=== PATIENT | female | born 1960 | race Caucasian/White ===

== ENCOUNTER 2016-06-11 08:09 | Emergency (ER) | payer OTHER ==
[~2016-06-11] VITALS: Ht 167.6 cm; Wt 108.9 kg
--- NOTE | 2016-06-11 08:26 | ED GENERAL ADULT ---
History of Present Illness General Chief Complaint: Lower Extremity Injury Stated Complaint: LOWER L LEG PAIN X 3 DAYS Source: patient Exam Limitations: no limitations Reconcile Medications Apixaban (Eliquis) 5 MG TABLET 0 PO BID dvt 10mg PO BID x 7 days, then 5 mg PO BID Aspirin (Aspirin*) 81 MG TAB.CHEW 1 TAB PO DAILY HEART HEALTH (Reported) Lisinopril/Hydrochlorothiazide (Lisinopril-Hctz 10-12.5 MG Tab) 10 MG-12.5 MG TABLET 1 TAB PO DAILY HEART (Reported) Metoprolol Tartrate 25 MG TABLET 1 TAB PO BID HEART (Reported) Oxycodone HCl/Acetaminophen (Percocet 5-325 MG Tablet) 5 MG-325 MG TABLET 1 TAB PO Q6H PRN PAIN Triage Note: C/O LEFT CALF PAIN X 5 DAYS, LEFT LOWER LEG RASH X 1 DAYS. NOW STATES PAIN RADIATES TO LEFT HEEL AND TIBIA AREA. PAIN SOMEWHAT RELIEVED BY FLEXERIL AND 1/2 PERCOCET YESTERDAY. Triage Nurses Notes Reviewed? yes HPI: Patient is a 56-year-old female presents complaining of left calf pain onset approximately 5 days ago. Pain "feels like hell" when patient is walking, mildly improves with elevation and icy hot to the area. Patient also took a Flexeril, baby aspirin, half a Percocet with mild improvement. Patient reports she noticed a rash to the area 2 days. Patient denies known trauma, fevers, chills, chest pain, dyspnea. (TIP RODRIGUEZ) Vital Signs & Intake/Output Vital Signs & Intake/Output Vital Signs Date Time Temp Pulse Resp B/P Pulse O2 O2 Flow FiO2 Ox Delivery Rate 06/11 1002 98.9 71 20 141/75 97 Room Air 06/11 0815 97.7 68 18 140/76 99 Room Air Allergies Coded Allergies: aspirin (UNKNOWN 06/11/16) (MEÑO MEDINA,CASIMIRO Benites) Past History Travel History Traveled to [place] past 21 day No Medical History Any Pertinent Medical History? see below for history Cardiovascular: hypertension Surgical History Surgical History: non-contributory Psychosocial History What is your primary language Senegalese Tobacco Use: Never used ETOH Use: denies use Illicit Drug Use: denies illicit drug use Family History Hx Contributory? No (TIP RODRIGUEZ) Review of Systems Review of Systems Constitutional: Denies: chills, fever. Respiratory: Denies: short of breath. Cardiovascular: Denies: chest pain. GI: Denies: abdominal pain, nausea, vomiting. Musculoskeletal: Denies: back pain, neck pain. Skin: Reports: rash. Neurological/Psychological: Denies: headache, numbness. Hematologic/Endocrine: Denies: bruising, bleeding. Immunologic/Allergic: Denies: splenectomy. (GALEN CHAVEZ,TIP) Physical Exam Physical Exam General Appearance: well developed/nourished, alert, awake Head: atraumatic, normal appearance Eyes: Bilateral: normal appearance, PERRL, EOMI. Ears, Nose, Throat: normal pharynx, normal ENT inspection, hearing grossly normal Neck: normal inspection, supple, full range of motion Respiratory: normal breath sounds, chest non-tender, no respiratory distress, lungs clear Cardiovascular: regular rate/rhythm (no murmur) Peripheral Pulses: 2+ dorsalis pedis (R), 2+ dorsalis pedis (L) Gastrointestinal: soft, non-tender Back: normal inspection, normal range of motion, no vertebral tenderness Extremities: 1+ left lower extremity edema. Petechial rash to left medial inferior leg. Positive calf tenderness. Mild tenderness posterior fossa. Full range of motion of all 4 extremities. Neurologic/Psych: no motor/sensory deficits, awake, alert, oriented x 3, normal gait, normal mood/affect Skin: warm/dry, localized petechial rash left calf. Core Measures ACS in differential dx? No CVA/TIA Diagnosis: No Severe Sepsis Present: No Septic Shock Present: No (TIP RODRIGUEZ) Progress Differential Diagnoses I considered the following diagnoses in my evaluation of the patient: DVT, muscle strain, cellulitis, vasculitis, superficial thrombophlebitis, García's cyst Diagnostic Imaging: Viewed by Me: Ultrasound. Discussed w/RAD: Ultrasound. Radiology Impression: PATIENT: TANVIR BECKFORD PRESENT AGE: 56 PATIENT ACCOUNT NO: [id number] : 61 LOCATION: [facility] ORDERING PHYSICIAN: TIP CHAVEZ SERVICE DATE: 06/11/164242 EXAM TYPE: US - US-UNILATERAL VENOUS DOPPLER EXAMINATION: US TRIPLEX LOWER EXTREMITY, LEFT CLINICAL INFORMATION: Left calf pain. COMPARISON: None. TECHNIQUE: Color- flow triplex imaging with spectral analysis and compression Doppler were performed on the left lower extremity. FINDINGS: The left common femoral vein is compressible and exhibits a normal phasic waveform; this suggests that the iliac veins are widely patent above. Within the proximal thigh, the visualized profunda femoris vein is patent and the examined greater saphenous vein and saphenofemoral junction are normal. There is occlusive thrombus within the femoral vein of the proximal, mid and distal thigh. Also, thrombus involves the tibioperoneal trunk and visualized posterior tibial and peroneal veins. No evidence of García's cyst. IMPRESSION: There is extensive deep vein thrombosis of the left lower extremity. The critical test result was discussed with Tip Parker at 9:35 am it was ascertained that the content and the importance of the findings was understood at the time of the direct communication. DICTATED BY : BENJAMIN LIMA MD DATE/TIME DICTATED:06/11/16931 HIDE PASTER: JUANJO DATE/TIME TRANSCRIBED:06/11/16931 CONFIDENTIAL, DO NOT COPY WITHOUT APPROPRIATE AUTHORIZATION. <Electronically signed in Other Vendor System> SIGNED BY: BENJAMIN LIMA MD 06/11/16 0940 Initial ED EKG: none (GALEN CHAVEZ,TIP) Plan of Care: Orders Procedure Date/time Status COMPREHENSIVE METABOLIC PANEL 06/11 832 Complete CBC WITHOUT DIFFERENTIAL 06/11 832 Complete Laboratory Tests 06/11/16 0845: Anion Gap 12, Estimated GFR > 60, BUN/Creatinine Ratio 28.3 H, Glucose 93, Calcium 9.4, Total Bilirubin 1.2, AST 26, ALT 27, Alkaline Phosphatase 70, Total Protein 7.9, Albumin 4.2, Globulin 3.7, Albumin/Globulin Ratio 1.1, CBC w Diff NO MAN DIFF REQ, RBC 3.96 L, MCV 93.2, MCH 31.4 H, RDW 14.5, MPV 9.2, Gran % 75.8 H, Lymphocytes % 14.5 L, Monocytes % 8.5, Eosinophils % 0.7, Basophils % 0.5, Absolute Granulocytes 8.1 H, Absolute Lymphocytes 1.6, Absolute Monocytes 0.9 H, Absolute Eosinophils 0.1, Absolute Basophils 0.1, PUBS MCHC 33.7 0940: Results of ultrasound discussed with patient. Denies chest pain or dyspnea. Discussed treatment of DVTs and risk of bleeding on anticoagulants. Patient's primary care provided paged to discuss case. Discussed with Dr. Lujan. 953: Discussed with Ernie Bonner APRN: can place patient on anticoagulant and have her follow up in the office early next week. Disposition and follow-up discussed with patient. Bleeding risks and signs and symptoms to monitor for were discussed with the patient. Patient instructed to avoid ibuprofen and other anti-inflammatories due to bleeding risk. Appears stable for discharge with close outpatient follow-up. (TIP RODRIGUEZ) Departure Departure Time of Disposition: 953 Disposition: HOME OR SELF CARE Condition: Stable Clinical Impression Primary Impression: DVT (deep venous thrombosis) Qualifiers: DVT location: lower extremity Affected thrombotic vein of extremity : unspecified vein of extremity Laterality: left Chronicity: acute Qualified Code: I82.402 - Acute embolism and thrombosis of unspecified deep veins of left lower extremity Referrals: SALLY PADILLA APRN (PCP/Family) Additional Instructions: Follow-up with your primary care provider early next week for further evaluation. Call today for appointment. You're being placed on a strong anticoagulant medication. This can increase your risk of bleeding. If you sustain any trauma including head injury then he should be evaluated immediately for any abnormal bleeding. Also return to the emergency Department immediately if he develops any chest pain, difficulty breathing, numbness of your left lower extremity, pain is worsening of the left lower extremity, or worsening of symptoms. Departure Forms: Customer Survey General Discharge Information Prescriptions: Current Visit Scripts Apixaban (Eliquis) 0 PO BID #60 TAB 10mg PO BID x 7 days, then 5 mg PO BID Oxycodone HCl/Acetaminophen (Percocet 5-325 MG Tablet) 1 TAB PO Q6H PRN PAIN #10 TAB (TIP RODRIGUEZ) PA/CASHIER SUPERVISOR Co-Sign Statement Statement: ED Attending supervision documentation- [] I saw and evaluated the patient. I have also reviewed all the pertinent lab results and diagnostic results. I agree with the findings and the plan of care as documented in the PA's/CASHIER SUPERVISOR's documentation. [x] I have reviewed the ED Record and agree with the PA's/CASHIER SUPERVISOR's documentation. [] Additions or exceptions (if any) to the PAs/CASHIER SUPERVISOR's note and plan are summarized below: [] (MEÑO MEDINA,CASIMIRO Benites) Critical Care Note Critical Care Note Critical Care Time: non-applicable (GALEN CHAVEZ,TIP)
[2016-06-11] MEDS ORDERED: LISINOPRIL-HCT1 EAC2 PO (08:48)
[2016-06-11] MEDS ORDERED: METOPROLOL TART25 M1 PO (08:48)
[2016-06-11] MEDS ORDERED: ASPIRIN81 M4 PO (08:50)
[2016-06-11 08:54] LABS: ABSOLUTE BASOPHIL COUNT 0.1 /CUMM (0.0-0.2); ABSOLUTE EOSINOPHIL COUNT 0.1 /CUMM (0.0-0.7); ABSOLUTE GRANULOCYTE CT 8.1 /CUMM (1.4-6.5); ABSOLUTE LYMPH COUNT 1.6 /CUMM (1.2-3.4); ABSOLUTE MONOCYTE COUNT 0.9 /CUMM (0.10-0.60); BASOPHIL % 0.5 % (0.0-2.0); EOSINOPHIL % 0.7 % (0-5); GRANULOCYTE % 75.8 % (42.2-75.2); HEMATOCRIT 36.9 % (37-47); MEAN CORPUSCULAR HGB 31.4 PG (27.0-31.0); MEAN CORPUSCULAR HGB CONC 33.7 G/DL (33.0-37.0); MEAN CORPUSCULAR VOLUME 93.2 FL (81.0-99.0); MEAN PLATELET VOLUME 9.2 FL (7.4-10.4); PLATELET COUNT 214 /CUMM (130-400); RBC DISTRIBUTION WIDTH 14.5 % (11.5-14.5); RED BLOOD CELL CT 3.96 /CUMM (4.20-5.40); WHITE BLOOD CELL COUNT 10.7 /CUMM (4.8-10.8)
--- NOTE | 2016-06-11 09:40 | ULTRASOUND REPORT ---
EXAMINATION: US TRIPLEX LOWER EXTREMITY, LEFT CLINICAL INFORMATION: Left calf pain. COMPARISON: None. TECHNIQUE: Color-flow triplex imaging with spectral analysis and compression Doppler were performed on the left lower extremity. FINDINGS: The left common femoral vein is compressible and exhibits a normal phasic waveform; this suggests that the iliac veins are widely patent above. Within the proximal thigh, the visualized profunda femoris vein is patent and the examined greater saphenous vein and saphenofemoral junction are normal. There is occlusive thrombus within the femoral vein of the proximal, mid and distal thigh. Also, thrombus involves the tibioperoneal trunk and visualized posterior tibial and peroneal veins. No evidence of García's cyst. IMPRESSION: There is extensive deep vein thrombosis of the left lower extremity. The critical test result was discussed with Tip Parker at 9:35 am it was ascertained that the content and the importance of the findings was understood at the time of the direct communication.
[2016-06-11 10:02] VITALS: BP 141/75
[2016-06-11] MEDS ORDERED: PERCOCET 5-3251 EACH PO (10:02)
[2016-06-11] MEDS ORDERED: ELIQUIS5 M1 PO (10:02)
== END 2016-06-11 10:06 ==
LOC: ERH 08:09
PROVIDERS: Physician Assistant
DX: I82.412 Acute embolism and thrombosis of left femoral vein (principal); I82.442 Acute embolism and thrombosis of left tibial vein